=== PATIENT | female | born 1985 | race Caucasian/White ===

== ENCOUNTER 2017-07-25 23:30 | Inpatient (IN) | payer BC ==
[2017-07-25] MEDS ORDERED: Lactated Ringers 1,000 ML IV SCH (23:45)
[2017-07-25] MEDS ORDERED: Oxytocin/0.9 % Sodium Chloride 30 UNIT/500 ML BAG IV SCH (23:45)
[2017-07-25] MEDS ORDERED: Lidocaine 1% 50 ML MDV INJECT PRN (23:55)
[2017-07-25] MEDS ORDERED: Nalbuphine 10 MG/1 ML Vial IVPUSH PRN (23:55)
[2017-07-25] MEDS ORDERED: Sodium Chloride 0.9% 10 ML Syringe FLUSH PRN (23:55)
[2017-07-25] MEDS ORDERED: Sodium Chloride 0.9% 2.5 ML Syringe FLUSH PRN (23:55)
[2017-07-25] MEDS ORDERED: Water For Irrigation,Sterile 1,000 ML Container IRR PRN (23:55)
[2017-07-25] MEDS ORDERED: Carboprost Tromethamine 250 MCG/1 ML Amp IM PRN (23:55)
[2017-07-25] MEDS ORDERED: Butorphanol 1 MG/ML SDV IVPUSH PRN (23:55)
[2017-07-25] MEDS ORDERED: Methylergonovine 0.2 MG/1 ML Amp IM PRN (23:55)
[2017-07-25] MEDS ORDERED: Misoprostol 200 MCG Tab PO PRN (23:55)
[2017-07-26] MEDS ORDERED: Ampicillin 2 GM in Sodium Chloride 0.9% 100 ML IV ONE ×2
[2017-07-26] MEDS ORDERED: Sodium Chloride 0.9% 100 ML ONE (00:15)
[2017-07-26] MEDS ORDERED: Ampicillin 2 GM AdvVial IV ONE (00:15)
[2017-07-26] MEDS ORDERED: Ibuprofen 400 MG Tab PO PRN (02:38)
[2017-07-26] MEDS ORDERED: Docusate Sodium 100 MG Cap PO PRN (02:38)
[2017-07-26] MEDS ORDERED: Witch Hazel Medicated Pads 40/Jar TOP PRN (02:38)
[2017-07-26] MEDS ORDERED: Bisacodyl 10 MG Supp RECTAL PRN (02:38)
[2017-07-26] MEDS ORDERED: oxyCODONE 5 MG Tab PO PRN (02:38)
[2017-07-26] MEDS ORDERED: Acetaminophen 500 MG Tab PO PRN ×2 (02:38)
[2017-07-26] MEDS ORDERED: Lanolin 100% Cream 7 GM Tube TOP PRN (02:38)
[2017-07-26] MEDS ORDERED: Benzocaine/Menthol 20%-0.5% Spray 78 GM Cannister TOP PRN (02:38)
[2017-07-26] MEDS ORDERED: Ampicillin 1 GM in Sodium Chloride 0.9% 50 ML IV SCH (04:00)
[2017-07-26] MEDS: Ibuprofen 800 MG Tab PO PRN (07:28)
--- NOTE | 2017-07-26 10:33 | OR ---
SURGEON: Radha Chery MD DATE OF PROCEDURE: 07/26/2017 PREOPERATIVE DIAGNOSES: 1. Term at 37 weeks' gestation. 2. Spontaneous labor. 3. Previous section, ideal candidate for trial of labor after section. POSTOPERATIVE DIAGNOSES: 1. Term at 37 weeks' gestation. 2. Spontaneous labor. 3. Previous section, ideal candidate for trial of labor after section. 4. Delivered. PROCEDURE PERFORMED: Vaginal delivery after section. ANESTHESIA: None. ESTIMATED BLOOD LOSS: 100 mL. COMPLICATIONS: None. DISPOSITION: Mother and baby stable in Labor and Delivery room, bonding. FINDINGS: Male , weight 2980 grams. score 7 and 8 at 1 and 5 minutes respectively. Grossly normal placenta with 3-vessel cord. Intact perineum. BRIEF HISTORY: The patient is a 31-year-old, G3, P2, patient of Dr. Pimentel at the [facility]. The patient is under my care as [facility] is covering Dr. Pimentel this weekend. She presented to Labor and Delivery room shortly before midnight at 37 weeks' gestation with a history of contractions since 5:00 a.m. which became regular 3 hours prior to presentation. She denies vaginal bleeding, leakage of fluid, and reported movements. The patient is an ideal candidate for trial of labor after section, having had a section in 2006 for intolerance of labor followed by successful in 2010. Her care has been, otherwise, uncomplicated. Her GBS status was unknown. The swab was collected at her last visit on . When patient arrived to Labor and Delivery room, she was 5 cm dilated, 80% effaced, -3. she was admitted and received Ampicillin for unknown GBS status. Within 30 minutes of arrival, she started complaining of increased rectal pressure, was reexamined and had advanced to 8 cm. We discussed the process of trial of labor after section, TOLAC, she confirmed her desire to proceed and consents for both and RLTCS were signed. The patient was requesting an epidural, but with her continual complaints of increased rectal pressure. I reexamined her, she was fully dilated with a bulging membrane at +2 station. I discussed performing an artificial rupture of membrane and with commencement of pushing thereafter. She accepted. Artificial rupture of membranes was performed with clear amniotic fluid noted and then she was set up for delivery. She pushed the head down to a + 4 station with 2 contractions. FHT was CAT 1 in stage and CAT 2 in 2nd stage of labor. DESCRIPTION OF PROCEDURE: The patient had a spontaneous vaginal delivery of a live male in direct occipital anterior position, no nuchal cord, and clear fluid at delivery. Anterior and posterior shoulders and the rest of the baby were delivered without difficulty. The baby was vigorous and cried spontaneously at . The baby was delivered onto the maternal abdomen with the nursery nurse attending to him. With the delivery of the , oxytocin infusion was commenced for active management of third stage of labor. Delayed cord clamping was performed and the cord was subsequently cut by the father of the baby. Cord blood and gas samples were obtained.The placenta was delivered by controlled cord traction, appeared to be complete and intact. Examination of the perineum revealed no lacerations. Uterine massage was performed, and the uterus was found to be well contracted below the umbilicus. The patient tolerated the procedure well. Sponge, instrument, and needle counts were correct at the end of the delivery. ADUMVIV / SALMA /[id number] MERARY
[2017-07-27] MEDS: Ibuprofen 800 MG Tab PO PRN (02:28)
--- NOTE | 2017-07-27 09:16 | PCM.DCSUM1 ---
Discharge Summary - Hospital Course Free Text/Narrative:: Discharge home with . Follow up 6 weeks for post or sooner if needed. - Discharge Data Discharge Date: 07/27/17 Discharge Disposition: Home, Self-Care 01 Condition: Good - Patient Instructions Diet: Regular Diet as Tolerated Activity: No Strenuous Activities Driving: May Drive Today Showering/Bathing: May Shower Notify Provider of: Fever, Increased Pain, Nausea and/or Vomiting Other/Special Instructions: Nothing per vagina for 6 weeks. Call office if fever over 101 F, uncontrolled pain or bleeding more than a large pad per hour. May use over the counter ibuprofen or Tylenol for pain. Continue to take vitamins while - Discharge Plan - General Info Date of Service: 07/27/17 Functional Status: Reports: Pain Controlled, Tolerating Diet, Ambulating, Urinating - Review of Systems General: Reports: No Symptoms HEENT: Reports: No Symptoms Pulmonary: Reports: No Symptoms Cardiovascular: Reports: No Symptoms Gastrointestinal: Reports: No Symptoms Genitourinary: Reports: No Symptoms Musculoskeletal: Reports: No Symptoms Skin: Reports: No Symptoms Neurological: Reports: No Symptoms Psychiatric: Reports: No Symptoms - Patient Data Vitals - Most Recent: Last Vital Signs Temp 36.4 C 07/27/17 08:00 Pulse 68 07/27/17 08:00 Resp 14 07/27/17 08:00 BP 100/58 L 07/27/17 08:00 Pulse Ox 97 07/27/17 08:00 Med Orders - Current: Current Medications Acetaminophen (Tylenol Extra Strength) 500 mg PO Q4H PRN PRN Reason: Pain Acetaminophen (Tylenol Extra Strength) 1,000 mg PO Q4H PRN PRN Reason: Pain Benzocaine/Menthol (Dermoplast Pain Relief 20%-0.5% [place]) 78 gm TOP ASDIRECTED PRN PRN Reason: Perineal Comfort Measure Bisacodyl (Dulcolax) 10 mg RECTAL .ONCE PRN PRN Reason: Constipation Docusate Sodium (Colace) 100 mg PO BID PRN PRN Reason: Constipation Emollient Ointment (Lansinoh Hpa) 0 gm TOP ASDIRECTED PRN PRN Reason: Sore Nipples Ibuprofen (Motrin) 400 mg PO Q4H PRN PRN Reason: Pain Ibuprofen (Motrin) 800 mg PO Q6H PRN PRN Reason: Pain Last Admin: 07/27/17 02:28 Dose: 800 mg Oxycodone HCl (Oxycodone) 5 mg PO Q2H PRN PRN Reason: Pain Witch Aiyana (Tucks) 1 pad TOP ASDIRECTED PRN PRN Reason: comfort care Discontinued Medications Ampicillin Sodium (Ampicillin) Confirm Administered Dose 2 gm IV .STK-MED ONE Stop: 07/26/17 00:16 Butorphanol Tartrate (Stadol) 1 mg IVPUSH Q1H PRN PRN Reason: Pain Carboprost Tromethamine (Hemabate Ds) 250 mcg IM ASDIRECTED PRN PRN Reason: Post Hemorrhage Ampicillin Sodium 2 gm/ Sodium (Chloride) 100 mls @ 200 mls/hr IV ONETIME ONE Stop: 07/26/17 00:29 Last Admin: 07/26/17 00:32 Dose: 200 mls/hr Lactated Ringer's (Ringers, Lactated) 1,000 mls @ 150 mls/hr IV ASDIRECTED JASON Oxytocin/Sodium Chloride (Oxytocin 30 Unit/500 Ml-Ns) 30 unit in 500 mls @ 999 mls/hr IV TITRATE JASON Sodium Chloride (Normal Saline) Confirm Administered Dose 100 mls @ as directed .ROUTE .STK-MED ONE Stop: 07/26/17 00:16 Ampicillin Sodium 1 gm/ Sodium (Chloride) 50 mls @ 100 mls/hr IV Q4H JASON Lidocaine HCl (Xylocaine 1%) 50 ml INJECT .ONCE PRN PRN Reason: Laceration repair Methylergonovine Maleate (Methergine) 0.2 mg IM ASDIRECTED PRN PRN Reason: Post Hemorrhage Misoprostol (Cytotec) 200 mcg PO .ONCE PRN PRN Reason: Post Hemorrhage Nalbuphine HCl (Nubain) 10 mg IVPUSH Q1H PRN PRN Reason: Pain (severe 7-10) Sodium Chloride (Saline Flush) 10 ml FLUSH ASDIRECTED PRN PRN Reason: Keep Vein Open Sodium Chloride (Saline Flush) 2.5 ml FLUSH ASDIRECTED PRN PRN Reason: Keep Vein Open Sterile Water (Sterile Water For Irrigation) 1,000 ml IRR ASDIRECTED PRN PRN Reason: delivery - Exam General: Reports: Alert, Oriented, Cooperative, No Acute Distress Lungs: Reports: Normal Respiratory Effort GI/Abdominal Exam: Soft, Non-Tender, No Organomegaly (Female) Exam: Vaginal Bleeding Rectal (Female) Exam: Deferred Back Exam: Reports: Full Range of Motion Extremities: Normal Range of Motion, Non-Tender, No Pedal Edema, Normal Capillary Refill Skin: Reports: Warm, Dry, Intact Wound/Incisions: Reports: Healing Well Neurological: Reports: No New Focal Deficit, Normal Speech, Normal Tone Psy/Mental Status: Reports: Alert, Normal Affect, Normal Mood *Q Meaningful Use (DIS) - VTE *Q VTE Criteria *Q: - Stroke *Q Stroke Criteria *Q: - AMI *Q AMI Criteria *Q:
== END 2017-07-27 11:40 | disposition home or self-care (01) | DRG 560 ==
LOC: MW.OBCHECK 23:30 → MW.OB 23:40 → MW.OBCHECK 23:55 → MW.OB 23:55 → OBSVTOIN 07-26 01:05 → MW.OB 07-26 04:48
PROVIDERS: ADMIT Obstetrics & Gynecology; ATTEND Obstetrics & Gynecology
PROC: 10E0XZZ Delivery of Products of Conception, External Approach (ICD-10-PCS; principal; 2017-07-26)
DX: O34.211 Maternal care for low transverse scar from previous cesarean delivery (principal); Z3A.37 37 weeks gestation of pregnancy; Z37.0 Single live birth
CPT/HCPCS: 36415; 59025; 59409; 85027; 86850; 86900; 86901; A9270-GY; J0290; J7030